=== PATIENT | male | born 1990 | race Caucasian/White ===

== ENCOUNTER 2018-12-29 11:36 | Emergency (ER) | payer OTHER ==
[2018-12-29 12:03] VITALS: BP 145/73
--- NOTE | 2018-12-29 12:20 | ED ---
Lower Extremity - HPI Summary HPI Summary: 28 yo WM p/w acute LLE pain while running 3 miles during [employer] , denies recent trauma, fall, direct blow to the area - History of Current Complaint Chief Complaint: UCLowerExtremity Stated Complaint: LEG INJURY Time Seen by Provider: 12/29/18 11:53 Hx Obtained From: Patient Pain Intensity: 6 - Allergies/Home Medications Allergies/Adverse Reactions: Allergies Allergy/AdvReac Type Severity Reaction Status Date / Time cat dander Allergy Congestion Verified 12/29/18 12:04 dog dander Allergy Congestion Verified 12/29/18 12:04 Home Medications: Home Medications Ibuprofen 800 mg PO ONCE PRN 12/29/18 [History Confirmed 12/29/18] PMH/Surg Hx/FS Hx/Imm Hx Infectious Disease History: No Infectious Disease History: Denies: Traveled Outside the [place] in Last 30 Days - Social History Alcohol Use: Rare Substance Use Type: Reports: None Smoking Status (MU): Never Smoked Tobacco Review of Systems - ROS Summary Review of Systems Summary: Constitutional: Negative Skin: Negative Eyes: Negative ENT: Negative Cardiovascular: Negative Respiratory: Negative Gastrointestinal: Negative Genitourinary: Negative Musculoskeletal: see HPI Neurological: Negative Psychological: Normal All Other Systems Reviewed And Are Negative: Yes All Other Systems Reviewed And Are Negative: Yes Physical Exam - Summary Physical Exam Summary: Triage Information Reviewed: Yes Appearance: No Pain Distress Eye Exam: Normal ENT Exam: Normal Neck: Supple Respiratory: Lungs clear, Normal breath sounds Cardiovascular: Positive: RRR, S1, S2 Abdominal Exam: Normal Musculoskeletal Exam: moderate TTP lateral to left tibia, along the left tibialis anterior radiates to left knee and ankle Neurological Exam: Normal Psychological Exam: Normal Skin Exam: Normal Vital Signs On Initial Exam: Initial Vitals Temp Pulse Resp BP Pulse Ox 36.9 C 90 18 145/73 98 12/29/18 11:59 12/29/18 11:59 12/29/18 11:59 12/29/18 11:59 12/29/18 11:59 Diagnostics - Vital Signs Vital Signs Temp Pulse Resp BP Pulse Ox 12/29/18 11:59 36.9 C 90 18 145/73 98 - Laboratory Lab Statement: Any lab studies that have been ordered have been reviewed, and results considered in the medical decision making process. Lower Extremity Course/Dx - Course Assessment/Plan: LLE pain- XR of left knee, lower leg and ankle neg for fracture and dislocation, probable moderate to severe hanks splints, will need to be off of it with RICE, NSAIDS, work note - Diagnoses Provider Diagnoses: Hanks splint of left lower extremity Discharge - Sign-Out/Discharge Documenting (check all that apply): Patient Departure All imaging exams completed and their final reports reviewed: Yes - Discharge Plan Condition: Stable Disposition: HOME Prescriptions: Naproxen [Naproxen 500 mg tab] 500 mg PO BID 10 Days #20 tablet Patient Education Materials: Hanks Splints (ED) Forms: *Work Release Referrals: No Primary Care Phys,NOPCP [Primary Care Provider] - - Billing Disposition and Condition Condition: STABLE Disposition: Home
== END 2018-12-29 13:26 | disposition home or self-care (01) ==
LOC: UCEAST 11:36
DX: M79.605 Pain in left leg (principal); Z91.09 Other allergy status, other than to drugs and biological substances
CPT/HCPCS: 99202; G0463